=== PATIENT | male | born 1980 | race Caucasian/White ===

== ENCOUNTER 2016-07-24 17:10 | Emergency (ER) | payer MEDICAID ==
[2016-07-24 17:21] VITALS: BP 155/93
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
== END 2016-07-24 21:33 ==
LOC: JD.ED 17:10
DX: F20.0 Paranoid schizophrenia (principal); F29 Unspecified psychosis not due to a substance or known physiological condition; Z91.5 Personal history of self-harm; I10 Essential (primary) hypertension; F41.9 Anxiety disorder, unspecified; Z79.899 Other long term (current) drug therapy; F17.210 Nicotine dependence, cigarettes, uncomplicated
CPT/HCPCS: 36415; 80053; 80306; 81001; 84443; 85025; 85610; 85730; 99285; G0480; 99284

== ENCOUNTER 2016-11-04 14:38 | Emergency (ER) | payer MEDICAID ==
[2016-11-04 14:57] VITALS: BP 120/77
--- NOTE | 2016-11-04 15:34 | EDM.PDOC ---
ED HPI GENERAL MEDICAL PROBLEM - General Chief Complaint: Behavioral/Psych Stated Complaint: PSYCH EVAL Time Seen by Provider: 11/04/16 15:20 Source of Information: Reports: Patient History Limitations: Reports: No Limitations - History of Present Illness INITIAL COMMENTS - FREE TEXT/NARRATIVE: Patient is a 36-year-old male who presents to the ED wishing to be medically cleared to go to [facility] home through [facility] for further adjustment to his medications. Patient states upuntil yesterday he had been living in the [facility] since September 2016. Patient states since discharge he is becoming more anxious, paranoid, having racing thoughts. He has been in contact with [facility] to be readmitted. Patient didn't sleep well last night but he feels the medications he is currently on need further adjustment. He does not recall what the names of the current medications he is taking. He does see Dr. Mon for these concerns. Denies any hallucinations, homicidal suicidal ideations , recent alcohol use or drug use. 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 Denies any chest pain, shortness of breath, nausea/vomiting, abdominal pain, fever/chills, visual disturbances, or any additional complaints. Patient has a history of schizophrenia and anxiety. - Related Data Allergies Allergy/AdvReac Type Severity Reaction Status Date / Time No Known Allergies Allergy Verified 07/24/16 17:16 Home Meds: Home Meds Benztropine [Cogentin] 1 mg PO BID 08/18/14 [History] ClonazePAM [KlonoPIN] 0.25 mg PO DAILY 08/18/14 [History] Metoprolol Succinate 12.5 mg PO BID 08/18/14 [History] OLANZapine [Zyprexa] 20 mg PO BID 08/18/14 [History] QUEtiapine Fumarate [Seroquel] 600 mg PO DAILY 08/18/14 [History] traZODone 50 mg PO QPM PRN 08/18/14 [History] Naltrexone 50 mg PO DAILY 04/19/16 [History] Past Medical History Cardiovascular History: Reports: Hypertension Other Cardiovascular History: "heart races" Psychiatric History: Reports: Anxiety, Schizophrenia - Past Surgical History GI Surgical History: Reports: Appendectomy Social & Family History - Tobacco Use Smoking Status *Q: Current Every Day Smoker Years of Tobacco use: 12 Packs/Tins Daily: 1 Second Hand Smoke Exposure: No - Caffeine Use Caffeine Use: Reports: Coffee, Soda - Alcohol Use Days Per Week of Alcohol Use: 0 - Recreational Drug Use Recreational Drug Use: No Drug Use in Last 12 Months: No Recreational Drug Type: Reports: Marijuana/Hashish, Methamphetamine Recreational Drug Use Frequency: Rarely Recreational Drug Last Use: cannot remember ED ROS GENERAL - Review of Systems Review Of Systems: ROS reveals no pertinent complaints other than HPI. ED EXAM, BEHAVIORAL HEALTH - Physical Exam Exam: See Below Exam Limited By: No Limitations General Appearance: Alert, WD/WN, No Apparent Distress Eye Exam: Bilateral Eye: EOMI, PERRL Ears: Hearing Grossly Normal Nose: Normal Inspection Throat/Mouth: Normal Voice, No Airway Compromise Neck: Normal Inspection, Supple Respiratory/Chest: No Respiratory Distress, Lungs Clear, Normal Breath Sounds, No Accessory Muscle Use Cardiovascular: Normal Peripheral Pulses, Regular Rate, Rhythm Extremities: Normal Inspection Neurological: Alert, Normal Mood/Affect, CN II-XII Intact, Normal Cognition, No Motor/Sensory Deficits, Oriented x 3 Psychiatric: Alert, Normal Affect, Normal Cognition, Normal Mood, Oriented Skin Exam: Warm, Dry, Intact, Normal color, No rash COURSE, BEHAVIORAL HEALTH COMP - Course Vital Signs: Last Vital Signs Temp 98.5 F 11/04/16 14:57 Pulse 85 11/04/16 14:57 Resp 20 11/04/16 14:57 BP 120/77 11/04/16 14:57 Pulse Ox 98 11/04/16 14:57 Orders, Labs, Meds: Laboratory Tests 11/04/16 11/04/16 11/04/16 Range/Units 15:28 15:35 15:35 WBC 11.27 H (4.23-9.07) K/mm3 RBC 5.38 (4.63-6.08) M/mm3 Hgb 16.6 (13.7-17.5) gm/L Hct 47.4 (40.1-51.0) % MCV 88.1 (79.0-92.2) fl MCH 30.9 (25.7-32.2) pg MCHC 35.0 (32.2-35.5) g/dl RDW Std Deviation 42.8 (35.1-43.9) fL Plt Count 157 L (163-337) K/mm3 MPV 10.0 (9.4-12.3) fl Neut % (Auto) 77.0 H (34.0-67.9) % Lymph % (Auto) 16.1 L (21.8-53.1) % [place] % (Auto) 5.9 (5.3-12.2) % Eos % (Auto) 0.6 L (0.8-7.0) Baso % (Auto) 0.2 (0.1-1.2) % Neut # (Auto) 8.67 H (1.78-5.38) K/mm3 Lymph # (Auto) 1.82 (1.32-3.57) K/mm3 [place] # (Auto) 0.67 (0.30-0.82) K/mm3 Eos # (Auto) 0.07 (0.04-0.54) K/mm3 Baso # (Auto) 0.02 (0.01-0.08) K/mm3 Sodium 141 (136-145) mEq/L Potassium 3.7 (3.5-5.1) mEq/L Chloride 107 (98-107) mEq/L Carbon Dioxide 25 (21-32) mEq/L Anion Gap 12.7 (5-15) BUN 8 (7-18) mg/dL Creatinine 1.3 (0.7-1.3) mg/dL Est Cr Clr Drug Dosing TNP Estimated GFR (MDRD) > 60 (>60) mL/min BUN/Creatinine Ratio 6.2 L (14-18) Glucose 107 H (74-106) mg/dL Calcium 9.2 (8.5-10.1) mg/dL Total Bilirubin 0.7 (0.2-1.0) mg/dL AST 18 (15-37) U/L ALT 35 (16-63) U/L Alkaline Phosphatase 49 (46-116) U/L Total Protein 7.4 (6.4-8.2) g/dl Albumin 4.5 (3.4-5.0) g/dl Globulin 2.9 gm/dL Albumin/Globulin Ratio 1.6 (1-2) TSH 3rd Generation 1.277 (0.358-3.74) uIU/mL Urine Opiates Screen Negative (NEGATIVE) Ur Buprenorphine Scrn Negative (NEGATIVE) Ur Oxycodone Screen Negative (NEGATIVE) Urine Methadone Screen Negative (NEGATIVE) Ur Propoxyphene Screen Negative (NEGATIVE) Ur Barbiturates Screen Negative (NEGATIVE) Ur Tricyclics Screen Presumptive positive H (NEGATIVE) Ur Phencyclidine Scrn Negative (NEGATIVE) Ur Amphetamine Screen Negative (NEGATIVE) U Methamphetamines Scrn Negative (NEGATIVE) U Benzodiazepines Scrn Negative (NEGATIVE) U Cocaine Metab Screen Negative (NEGATIVE) U Marijuana (THC) Screen Negative (NEGATIVE) Ethyl Alcohol 0.00 (0.00) gm% Re-Assessment/Re-Exam: Will obtain basic labs including CBC, chem 14, TSH, urine drug tox, and EtOH. CBC and chem 14 were essentially normal. TSH was normal limits. Urine drug tox positive for tricyclic antidepressants. EtOH was negative. Obtained a medication list of current medications. Currently patient's taking metoprol 25 mg by mouth twice a day, clonazepam 0.5 mg by mouth twice a day, Seroquel 100 mg by mouth at at bedtime, Seroquel 50 mg by mouth every a.m., clozapine 150 mg by mouth twice a day, trazodone 100 mg by mouth at at bedtime, Lexapro 10 mg by mouth every day. Discussed patient with Elina Prasad [phone]) Nurse search engine optimization strategist at [facility]. She requests documenting in the discharge instructions for patient to continue taking his home medications per list in medication tab box. Will discharge patient home as documented. Departure - Departure Time of Disposition: 16:46 Disposition: Home, Self-Care 01 Condition: Good Clinical Impression: Anxiety, Panic disorder Schizophrenia Qualifiers: Schizophrenia type: unspecified Qualified Code(s): F20.9 - Schizophrenia, unspecified - Discharge Information Forms: ED Department Discharge Additional Instructions: [facility] has accepted you. Continue taking current medications including: Metoprol 25 mg, one tablet by mouth twice a day. Clonazepam 0.5 mg, one tablet twice a day by mouth. Seroquel 100 mg, one tab by mouth at at bedtime. Seroquel 50 mg one tab by mouth every morning. Clozapine 150mg , one tab by mouth twice a day. Trazodone 100 mg one tab by mouth at at bedtime. Lexapro 10 mg, one tab I mouth every day. Return to the E.D. as needed for any new or worsening symptoms.
== END 2016-11-04 17:00 | disposition home or self-care (01) ==
LOC: JD.ED 14:38
DX: F41.0 Panic disorder [episodic paroxysmal anxiety] (principal); F20.9 Schizophrenia, unspecified; I10 Essential (primary) hypertension; F17.210 Nicotine dependence, cigarettes, uncomplicated; Z90.49 Acquired absence of other specified parts of digestive tract; Z79.899 Other long term (current) drug therapy
CPT/HCPCS: 36415; 80053; 80306; 84443; 85025; 99284; G0480

== ENCOUNTER 2017-05-30 03:11 | Emergency (ER) | payer MEDICAID ==
--- NOTE | 2017-05-30 05:31 | EDM.PDOCBH ---
<Addison Seay - Last Filed: 05/30/17 08:02> ED HPI GENERAL MEDICAL PROBLEM - General Stated Complaint: MEDICAL CLEARENCE Time Seen by Provider: 05/30/17 04:45 - Related Data Allergies Allergy/AdvReac Type Severity Reaction Status Date / Time No Known Allergies Allergy Verified 07/24/16 17:16 Home Meds: Home Meds Benztropine [Cogentin] 1 mg PO BID 08/18/14 [History] ClonazePAM [KlonoPIN] 0.25 mg PO DAILY 08/18/14 [History] Metoprolol Succinate 12.5 mg PO BID 08/18/14 [History] OLANZapine [Zyprexa] 20 mg PO BID 08/18/14 [History] QUEtiapine Fumarate [Seroquel] 600 mg PO DAILY 08/18/14 [History] traZODone 50 mg PO QPM PRN 08/18/14 [History] Naltrexone 50 mg PO DAILY 04/19/16 [History] COURSE, BEHAVIORAL HEALTH COMP - Course Orders, Labs, Meds: Active Orders 24 hr Category Date Time Status EKG Documentation Completion [RC] ROUTINE Care 05/30/17 04:25 Active Laboratory Tests 05/30/17 05/30/17 05/30/17 Range/Units 04:25 04:25 04:25 WBC 8.07 (4.23-9.07) K/mm3 RBC 5.37 (4.63-6.08) M/mm3 Hgb 15.2 (13.7-17.5) gm/L Hct 44.6 (40.1-51.0) % MCV 83.1 (79.0-92.2) fl MCH 28.3 (25.7-32.2) pg MCHC 34.1 (32.2-35.5) g/dl RDW Std Deviation 38.9 (35.1-43.9) fL Plt Count 215 (163-337) K/mm3 MPV 8.8 L (9.4-12.3) fl Neutrophils % (Manual) 51 (40-60) % Band Neutrophils % 0 (0-10) % Lymphocytes % (Manual) 43 H (20-40) % Atypical Lymphs % 0 % Monocytes % (Manual) 6 (2-10) % Eosinophils % (Manual) 0 L (0.8-7.0) % Basophils % (Manual) 0 L (0.2-1.2) Platelet Estimate Adequate RBC Morph Comment Normal Sodium 135 L (136-145) mEq/L Potassium 3.7 (3.5-5.1) mEq/L Chloride 101 (98-107) mEq/L Carbon Dioxide 25 (21-32) mEq/L Anion Gap 12.7 (5-15) BUN 7 (7-18) mg/dL Creatinine 1.1 (0.7-1.3) mg/dL Est Cr Clr Drug Dosing TNP Estimated GFR (MDRD) > 60 (>60) mL/min BUN/Creatinine Ratio 6.4 L (14-18) Glucose 106 (74-106) mg/dL Calcium 9.3 (8.5-10.1) mg/dL Total Bilirubin 0.7 (0.2-1.0) mg/dL AST 35 (15-37) U/L ALT 41 (16-63) U/L Alkaline Phosphatase 44 L (46-116) U/L Total Protein 7.1 (6.4-8.2) g/dl Albumin 4.3 (3.4-5.0) g/dl Globulin 2.8 gm/dL Albumin/Globulin Ratio 1.5 (1-2) Salicylates 2.8 (2.8-20) mg/dL Urine Opiates Screen (NEGATIVE) Ur Buprenorphine Scrn (NEGATIVE) Ur Oxycodone Screen (NEGATIVE) Urine Methadone Screen (NEGATIVE) Ur Propoxyphene Screen (NEGATIVE) Acetaminophen 0 L (10-30) ug/mL Ur Barbiturates Screen (NEGATIVE) Ur Tricyclics Screen (NEGATIVE) Ur Phencyclidine Scrn (NEGATIVE) Ur Amphetamine Screen (NEGATIVE) U Methamphetamines Scrn (NEGATIVE) U Benzodiazepines Scrn (NEGATIVE) U Cocaine Metab Screen (NEGATIVE) U Marijuana (THC) Screen (NEGATIVE) Ethyl Alcohol 0.00 (0.00) gm% 05/30/17 Range/Units 04:25 WBC (4.23-9.07) K/mm3 RBC (4.63-6.08) M/mm3 Hgb (13.7-17.5) gm/L Hct (40.1-51.0) % MCV (79.0-92.2) fl MCH (25.7-32.2) pg MCHC (32.2-35.5) g/dl RDW Std Deviation (35.1-43.9) fL Plt Count (163-337) K/mm3 MPV (9.4-12.3) fl Neutrophils % (Manual) (40-60) % Band Neutrophils % (0-10) % Lymphocytes % (Manual) (20-40) % Atypical Lymphs % % Monocytes % (Manual) (2-10) % Eosinophils % (Manual) (0.8-7.0) % Basophils % (Manual) (0.2-1.2) Platelet Estimate RBC Morph Comment Sodium (136-145) mEq/L Potassium (3.5-5.1) mEq/L Chloride (98-107) mEq/L Carbon Dioxide (21-32) mEq/L Anion Gap (5-15) BUN (7-18) mg/dL Creatinine (0.7-1.3) mg/dL Est Cr Clr Drug Dosing Estimated GFR (MDRD) (>60) mL/min BUN/Creatinine Ratio (14-18) Glucose (74-106) mg/dL Calcium (8.5-10.1) mg/dL Total Bilirubin (0.2-1.0) mg/dL AST (15-37) U/L ALT (16-63) U/L Alkaline Phosphatase (46-116) U/L Total Protein (6.4-8.2) g/dl Albumin (3.4-5.0) g/dl Globulin gm/dL Albumin/Globulin Ratio (1-2) Salicylates (2.8-20) mg/dL Urine Opiates Screen Negative (NEGATIVE) Ur Buprenorphine Scrn Negative (NEGATIVE) Ur Oxycodone Screen Negative (NEGATIVE) Urine Methadone Screen Negative (NEGATIVE) Ur Propoxyphene Screen Negative (NEGATIVE) Acetaminophen (10-30) ug/mL Ur Barbiturates Screen Negative (NEGATIVE) Ur Tricyclics Screen Negative (NEGATIVE) Ur Phencyclidine Scrn Negative (NEGATIVE) Ur Amphetamine Screen Negative (NEGATIVE) U Methamphetamines Scrn Negative (NEGATIVE) U Benzodiazepines Scrn Negative (NEGATIVE) U Cocaine Metab Screen Negative (NEGATIVE) U Marijuana (THC) Screen Negative (NEGATIVE) Ethyl Alcohol (0.00) gm% Discharge vs Psych Eval/Treatment:: 05/30/17 08:02 that lens provider has reviewed [facility]. The they will take him back to [facility] at this time with a plan to set up something on a more permanent basis for a skilled nursing like setting for psychiatric patients. He keeps walking away from the crisis center bed. He then stops his medications of course which precipitates his problems. Patient will be discharged into the care of [facility] provider this morning. Departure - Departure Time of Disposition: 08:03 Disposition: DC/Tfer to Other 70 Condition: Fair Clinical Impression: Schizophrenia Qualifiers: Schizophrenia type: unspecified Qualified Code(s): F20.9 - Schizophrenia, unspecified - Discharge Information Instructions: Schizophrenia Referrals: Skylar Limon [facility] [Primary Care Provider] - Forms: ED Department Discharge Additional Instructions: Your seen and assessed to the emergency department tonight basically because you were essentially homeless. Dr. Mary from the crisis center bed where you were housed for the last 3-4 days. Because of persistent problems with schizophrenia you are released back into [facility] custody today so that we may be able to find him a pain more suitable long-term solution to your housing problem and ensure that you get her medication as required. - My Orders Last 24 Hours: My Active Orders 05/30/17 04:25 EKG Documentation Completion [RC] ROUTINE - Assessment/Plan Last 24 Hours: My Active Orders 05/30/17 04:25 EKG Documentation Completion [RC] ROUTINE <Macario Vidal - Last Filed: 05/30/17 20:30> ED HPI GENERAL MEDICAL PROBLEM - General Source of Information: Reports: Patient, Police History Limitations: Reports: No Limitations - History of Present Illness INITIAL COMMENTS - FREE TEXT/NARRATIVE: The patient was initially seen during downtime. [facility] has since come up. The patient was brought by the [place] [employer] for what they reported was paranoid suicidal/homicidal behavior. He is not under arrest. When I asked the patient what brought him here he responded "I've had paranoid delusional thoughts". He states that he has been thinking about being abducted by aliens. He made no mention of either suicidal or homicidal ideation, and he states that the police simply gave him a ride here, that he was not being disruptive. He states that he has been homeless for the past 4 days, ever since being released from [facility]. He states that he received his psychiatric medications - the names of which he does not know - while there, but that he has not been taking them since. Review of prior medical record from 11/04/2016 indicates that the patient has a history of anxiety and schizophrenia. The primary medical record also indicates that the patient has used marijuana and methamphetamine in the past, although he denied any drug use, past or present, to me tonight. There was also report of the patient accidentally injecting himself with an unknown drug, however, when I asked him about this, he states that he found a syringe and needle by a portable potty and injected himself, in 2006. The patient does not have a PCP. His Psychiatrist is Dr. Elkins. Past Medical History Cardiovascular History: Reports: Hypertension Psychiatric History: Reports: Anxiety, Schizophrenia - Past Surgical History GI Surgical History: Reports: Appendectomy (1996) Social & Family History - Tobacco Use Smoking Status *Q: Current Every Day Smoker Years of Tobacco use: 25 Packs/Tins Daily: 1 - Caffeine Use Caffeine Use: Reports: Coffee, Soda - Alcohol Use Alcohol Use History: Yes Days Per Week of Alcohol Use: 0 Alcohol Use Frequency: Socially - Recreational Drug Use Recreational Drug Use: Yes Recreational Drug Type: Reports: Marijuana/Hashish, Methamphetamine Recreational Drug Use Frequency: Rarely - Living Situation & Occupation Living situation: Reports: Other (Homeless) Occupation: Unemployed ED ROS GENERAL - Review of Systems Review Of Systems: ROS reveals no pertinent complaints other than HPI. ED EXAM, BEHAVIORAL HEALTH - Physical Exam Exam: See Below Exam Limited By: No Limitations General Appearance: Alert, WD/WN, No Apparent Distress Eye Exam: Bilateral Eye: Normal Inspection Ears: Normal External Exam, Hearing Grossly Normal Nose: Normal Inspection, No Blood Throat/Mouth: Normal Inspection, Normal Lips, Normal Voice, No Airway Compromise Head: Atraumatic, Normocephalic Neck: Normal Inspection, Full Range of Motion Respiratory/Chest: No Respiratory Distress, Lungs Clear, Normal Breath Sounds, No Accessory Muscle Use Cardiovascular: Normal Peripheral Pulses, Regular Rate, Rhythm, No Gallop, No JVD, No Murmur, No Rub GI/Abdominal: Normal Bowel Sounds, Soft, Non-Tender, No Organomegaly, No Distention, No Abnormal Bruit, No Mass (Male) Exam: Deferred Rectal (Males) Exam: Deferred Back Exam: Normal Inspection, Full Range of Motion, NT Extremities: Normal Inspection, Normal Range of Motion, No Pedal Edema, Normal Capillary Refill Neurological: Alert, No Motor/Sensory Deficits Psychiatric: Normal Affect Skin Exam: Warm, Dry, Intact, Normal color, No rash EKG INTERPRETATION EKG Date: 05/30/17 Time: 04:27 Rhythm: NSR Rate (Beats/Min): 72 [place]: Normal P-Wave: Present QRS: Normal ST-T: Other (Diffuse J-point elevation, but no ischemic changes) QT: Normal Comparison: NA - No Prior EKG COURSE, BEHAVIORAL HEALTH COMP - Course Medical Clearance: 05/30/17 06:05 The patient's medical evaluation has returned completely unremarkable. While the patient appears to have schizophrenia and is likely somewhat psychotic , I do not find that he is acutely a harm to himself or others, and therefore does not require psychiatric hospitalization. The patient's main problem is homelessness. We will endeavor to reach director social welfare to see if there is anything that they can do to help the patient. 05/30/17 06:28 The on-call nurse for the [facility] crisis bed was contacted. They are very familiar with the patient. He has been admitted to [facility] numerous times in the past, and almost always walks out. Such was the case 4 days ago, when the patient simply left. He was not discharged. They feel that the patient requires a higher level of psychiatric hospitalization, but are aware that we do not have an indication for emergency psychiatric hospitalization. They will get back to us with respect to accepting him back to [facility] today. 05/30/17 06:33 Notified that [facility] will send staff here to evaluate the patient. - My Orders Last 24 Hours: My Active Orders 05/30/17 04:25 EKG Documentation Completion [RC] ROUTINE - Assessment/Plan Last 24 Hours: My Active Orders 05/30/17 04:25 EKG Documentation Completion [RC] ROUTINE
[2017-05-30 05:50] LABS: ACETAMINOPHEN 0 ug/mL (10-30)
== END 2017-05-30 08:11 | disposition other institution (70) ==
LOC: JD.ED 03:11
DX: F20.9 Schizophrenia, unspecified (principal); I10 Essential (primary) hypertension; F17.210 Nicotine dependence, cigarettes, uncomplicated; Z79.899 Other long term (current) drug therapy
CPT/HCPCS: 36415; 80053; 80306; 85025; 93005; 99284; G0480; 99282